=== PATIENT | female | born 1970 | race Caucasian/White ===

== ENCOUNTER 2018-02-03 22:09 | Emergency (ER) | payer OTHER ==
[~2018-02-03] VITALS: Ht 160 cm; Wt 104.3 kg
[2018-02-03 22:34] VITALS: BP 128/92
[2018-02-04] MEDS ORDERED: PERCOCET 5-3251 EACH PO (00:15)
[2018-02-04] MEDS ORDERED: IBUPROFEN600 M1 PO (00:15)
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
== END 2018-02-04 00:46 ==
LOC: ERH 22:09
DX: T23.262A Burn of second degree of back of left hand, initial encounter (principal); X12.XXXA Contact with other hot fluids, initial encounter
CPT/HCPCS: 90471; 90714